=== PATIENT | female | born 1950 | race Caucasian/White ===

== ENCOUNTER 2023-09-24 13:51 | Outpatient (CLI) | payer MEDICARE, OTHER ==
[~2023-09-24] VITALS: Ht 170.2 cm; Wt 85.3 kg
[2023-09-24] MEDS ORDERED: [UNRECOGNIZED DRUG - OTHER] PO (14:46)
[2023-09-24] MEDS ORDERED: OMEG10006 PO (14:46)
[2023-09-24] MEDS ORDERED: [UNRECOGNIZED DRUG - OTHER] PO (14:46)
[2023-09-24] MEDS ORDERED: [UNRECOGNIZED DRUG - MIXTURE] PO (14:46)
[2023-09-24] MEDS ORDERED: CALCIUM ZINC PO (14:46)
[2023-09-24] MEDS ORDERED: potassium PO (14:46)
[2023-09-24] MEDS ORDERED: MAGN100T PO (14:46)
[2023-09-24] MEDS ORDERED: PROG200C11 PO (14:46)
[2023-09-24] MEDS ORDERED: FAMO-117 PO (14:46)
[2023-09-24] MEDS ORDERED: co q 10 PO (14:46)
[2023-09-24] MEDS ORDERED: advil PO (14:46)
[2023-09-24] MEDS ORDERED: CYANOCOBALAMIN PO (14:46)
[2023-09-24] MEDS ORDERED: [UNRECOGNIZED DRUG - REMARK] PO (14:46)
[2023-09-24] MEDS ORDERED: A AND D PO (14:46)
[2023-09-24] MEDS ORDERED: ESOM20CA38 PO (14:46)
[2023-09-24] MEDS ORDERED: ZINC PICOLINATE PO (14:46)
[2023-09-24] MEDS ORDERED: [UNRECOGNIZED DRUG - OTHER] PO (14:46)
[2023-09-24] MEDS ORDERED: melatonin PO (14:46)
[2023-09-24] MEDS ORDERED: ASHW500C PO (14:46)
[2023-09-24] MEDS ORDERED: PRAS25CA PO (14:46)
[2023-09-24] MEDS ORDERED: iodine PO (14:46)
[2023-09-24] MEDS ORDERED: LEVO125C4 PO (14:46)
[2023-09-24] MEDS ORDERED: [UNRECOGNIZED DRUG - OTHER] PO (14:46)
[2023-09-24] MEDS ORDERED: vitamin d3 PO (14:46)
[2023-09-24] MEDS ORDERED: MSM PO (14:46)
[2023-09-24 16:04] LABS: MEAN CORPUSCULAR HEMOGLOBIN 28.2 PG (27.0-31.0); MEAN CORPUSCULAR HGB CONC 33.2 g/dL (33.0-36.5); MEAN CORPUSCULAR VOLUME 85.1 FL (78-98); MEAN PLATELET VOLUME 9.3 FL (7.4-10.4); PRE OP HEMATOCRIT 44.1 % (35.0-45.0); PRE OP HEMOGLOBIN 14.6 g/dL (12.0-16.0); PRE OP PLATELET COUNT 203 X10'3 (140-440); PRE OP WHITE BLOOD COUNT 7.1 10'3 (4.8-10.8); RED BLOOD COUNT 5.19 X10'6 (4.20-5.60); RED CELL DISTRIBUTION WIDTH 14.8 % (11.5-14.5)
[2023-09-24 17:36] LABS: ALBUMIN 3.4 G/DL (3.4-5.0); ALKALINE PHOSPHATASE 97 IU/L (46-116); BLOOD UREA NITROGEN 14 MG/DL (7-18); BUN/CREATININE RATIO 20.9 (10.0-20.0); CALCIUM 8.8 MG/DL (8.5-10.1); CHLORIDE 102 MMOL/L (99-107); CREATININE 0.67 MG/DL (0.40-0.90); PRE OP ALT 25 U/L (30-65); PRE OP ANION GAP 10 (8-16); PRE OP AST 17 U/L (10-37); PRE OP BILIRUB, TOTAL 0.3 MG/DL (0.0-1.0); PRE OP GLUCOSE 103 MG/DL (70-104); PRE OP POTASSIUM 3.8 MMOL/L (3.4-5.1); PRE OP SODIUM 140 MMOL/L (135-145); THYROID STIMULATING HORMONE 0.15 ulU/ml (0.34-4.50); TOTAL PROTEIN 6.8 G/DL (6.4-8.2); eGFR 87 ML/MIN
[2023-09-24 18:15] LABS: PLATELET ESTIMATE NORMAL; TOTAL CELLS COUNTED 100
[2023-09-28] MEDS ORDERED: IBUP-24 PO (11:38)
[2023-09-28] MEDS ORDERED: MELA1TAB16 PO (11:38)
[2023-09-28] MEDS ORDERED: LIOT25TA12 PO (11:39)
[2023-09-28] MEDS ORDERED: POTA99CA PO (11:41)
[2023-09-28] MEDS ORDERED: MELA5TAB14 PO (11:42)
[2023-09-29] MEDS ORDERED: ringers solution, lacted 1,000 ML IV SCH (05:00)
[2023-09-29] MEDS ORDERED: famotidine 20mg tablet PO ONE (05:30)
[2023-09-29] MEDS ORDERED: tranexamic acid inj. 1,000 MG in normal saline IV soln 100ML IV ONE (05:30)
[2023-09-29] MEDS ORDERED: vancomycin 1,500 MG in NS 300ml IV soln IV ONE (05:30)
[2023-10-26] MEDS ORDERED: AZEL205. BOTHNARES (17:18)
[2023-11-02] MEDS ORDERED: MAGN120C2 PO ×2 (12:01)
[2023-11-02] MEDS ORDERED: VITA-325 PO (12:06)
[2023-11-02] MEDS ORDERED: VITD400T PO (12:06)
[2023-11-02] MEDS ORDERED: ESTR1PAT93 TOP (12:26)
[2023-11-02] MEDS ORDERED: UBID200C18 PO (12:35)
[2023-11-02] MEDS ORDERED: ZINC50TA60 PO (12:35)
[2023-11-02] MEDS ORDERED: CYAN50007 PO (12:35)
[2023-11-04] MEDS ORDERED: SCOP1PAT11 TOP (13:07)
== END 2023-09-24 23:59 | disposition home or self-care (01) ==
LOC: LAB 13:51 → EDSTATUS 09-29 08:30
PROVIDERS: ATTEND Orthopaedic Surgery
DX: Z01.818 Encounter for other preprocedural examination (principal); Z96.651 Presence of right artificial knee joint
CPT/HCPCS: 36415; 80053; 84443; 85007; 85025; 87081

== ENCOUNTER 2025-06-06 08:41 | Outpatient (CLI) | payer MEDICARE, OTHER ==
[~2025-06-06 08:41] MED LIST: ASHW500C PO; AZEL205.2 BOTHNARES; CALCIUM ZINC PO; CYAN50007 PO; ESOM20CA50 PO; ESTR1PAT93 TOP; FAMO-117 PO; LEVO125C5 PO; LIOT25TA12 PO; MAGNESIUM GLYC120 MG PO; MELA5TAB66 PO; MSM PO; OMEG10006 PO; POTA99CA PO; PRAS25CA8 PO; PROG200C11 PO; SCOP1PAT11 TOP; UBID200C18 PO; VITA-325 PO; VITD400T PO; ZINC50TA60 PO; [UNRECOGNIZED DRUG - MIXTURE] PO; [UNRECOGNIZED DRUG - OTHER] PO; [UNRECOGNIZED DRUG - OTHER] PO; [UNRECOGNIZED DRUG - OTHER] PO; [UNRECOGNIZED DRUG - REMARK] PO; iodine PO; vitamin d3 PO
--- NOTE | 2025-06-06 10:56 | RADIOLOGY REPORT ---
Exam: CT CT ABDOMEN PELVIS History: URINARY TRACT INFECTION,URINARY INCONTINENCE COMPARISON: None Technique: Multidetector spiral CT of the abdomen and pelvis was performed from lung bases to pubic symphysis. Intravenous contrast was administered during this examination. Portal venous imaging was obtained. Axial, coronal and sagittal multiplanar reformats were performed by the technologist on a separate workstation. Radiation Dose : 1. Abdomen/Pelvis: CTDIvol 21.3 mGy, DLP 1039 mGy*cm. Findings: Lung Bases: Right basilar subsegmental atelectasis. Liver: The liver is normal in size. No focal lesions. Normal hepatic vascular enhancement. Gallbladder and Biliary Tree: Unremarkable Spleen: Unremarkable Pancreas: The pancreas is normal in appearance without focal lesions or abnormal enhancement. Adrenal Glands: Unremarkable Kidneys: No hydronephrosis. Bilateral renal cysts and hyperdense cysts. Few punctate nonobstructing stones are present in the mid and lower pole of the right kidney measuring up to 0.1 cm. Bladder: Unremarkable Bowel: The stomach is grossly normal in appearance. Small bowel and colon are normal in caliber and distribution. The appendix is not visualized; however, no secondary findings of acute appendicitis identified. Ascites: Absent Lymphadenopathy: No mesenteric, retroperitoneal or periportal lymphadenopathy. Abdominal Wall and Mesentery: Unremarkable. Vasculature: The visualized abdominal aorta is normal in size and caliber. Abdominal and pelvic vessels demonstrate normal enhancement. Pelvic Organs: The uterus is surgically absent. Musculoskeletal: No aggressive focal bony lesions, acute fractures or dislocation. Multilevel degenerative changes of the spine. IMPRESSION: No acute abdominal or pelvic finding. Few punctate nonobstructing stones in the right kidney. Radiation optimization: All CT scans at this facility use at least one of these dose optimization techniques: automated exposure control mA and/or kV adjustment per patient size (includes targeted exams where dose is matched to clinical indication) or iterative reconstruction.
== END 2025-06-06 23:59 | disposition home or self-care (01) ==
LOC: RAD 08:41
PROVIDERS: ATTEND Internal Medicine
DX: N20.0 Calculus of kidney (principal); R32 Unspecified urinary incontinence; N39.0 Urinary tract infection, site not specified; N28.1 Cyst of kidney, acquired
CPT/HCPCS: 74176